=== PATIENT | male | born 2005 | race Asian ===

== ENCOUNTER 2024-04-17 18:12 | Emergency (ER) | payer OTHER, SELFPAY ==
[2024-04-17 18:40] VITALS: BP 150/96; PULSE 96; RESP 18; TEMP 37.6; O2SAT 99; BMI 23.8
--- NOTE | 2024-04-17 21:14 | ED.GENADULT ---
HPI - General Adult General Time Seen by Provider: 21:13 Date Seen: 04/20/24 Chief complaint: Unspecified Complaint, Adult Stated complaint: Med refill Time Seen by Provider: 04/17/24 21:13 Source: patient and RN notes reviewed Mode of arrival: ambulatory Limitations: no limitations History of Present Illness HPI narrative: This very pleasant 18-year-old male is coming in with concern of possible exposure to HIV. He was with a partner last night, was having intercourse and the condom broke. Both he and this partner were both tested in November and tested negative for STIs including HIV. This partner came in to see him this weekend. He is not totally clear on possible exposures for this partner since November. Prior to November both have not tested positive for HIV or had a history of STIs. He is wanting post exposure prophylaxis. He states he has had negative testing in November and is otherwise unconcerned until this episode last night. He is a student at [employer]. He is otherwise healthy, denies any chronic medical issues. Related Data Previous Rx's ?Medication ?Instructions ?Recorded dolutegravir 50 mg tablet (Tivicay) 50 mg PO DAILY #28 tabs 04/17/24 emtricitabine 200 mg-tenofovir 1 tab PO DAILY #28 tabs 04/17/24 disoproxil fumarate 300 mg tablet (Truvada) Allergies Allergy/AdvReac Type Severity Reaction Status Date / Time No Known Drug Allergies Allergy Verified 04/17/24 18:46 Review of Systems Narrative: As per HPI. PFSH PFS Social History Smoking Status: Never smoker How often do you have a drink containing alcohol: never AUDIT-C Alcohol total score: 0 Non-prescribed substance use: denies use Exam Const: Vital Signs, click to edit/add: Vital Signs - 24 hr 04/17/24 18:40 Temperature 99.7 F H Pulse Rate [Right Pulse Oximeter] 96 Respiratory Rate 18 Blood Pressure [Ri ght Upper Arm] 150/96 H Pulse Oximetry 99 Oxygen Delivery Me thod Room Air Patient is alert, interactive, no apparent distress. No examination done, discussion only. Documenting provider has reviewed patient's vital signs: yes Course Course ED Course: Did look at current protocols for recommendations for post exposure prophylaxis. There are no pharmacies open in [facility] [place], did review with him that we will send this to [facility] but I do believe patient's typically have to go to the [facility] to obtain this medicine. [facility] can transfer his prescription to facility that will have this, he can work with the pharmacy in the morning. He understands that he has 72 hours in which to start this medicine. Do think he should talk to his partner about getting subsequent testing. Vital Signs Vital signs: Initial Vital Signs Temperature 99.7 F H 04/17/24 18:40 Temperature Source Temporal Artery Scan 04/17/24 18:40 Pulse Rate 96 04/17/24 18:40 Pulse Rhythm Regular 04/17/24 18:40 Respiratory Rate 18 04/17/24 18:40 Blood Pressure 150/96 H 04/17/24 18:40 Blood Pressure Mean 114 H 04/17/24 18:40 Blood Pressure Position Sitting 04/17/24 18:40 Pulse Oximetry 99 04/17/24 18:40 Oxygen Delivery Method Room Air 04/17/24 18:40 Vital Signs Temperature 99.7 F H 04/17/24 18:40 Pulse Rate 96 04/17/24 18:40 Respiratory Rate 18 04/17/24 18:40 Blood Pressure 150/96 H 04/17/24 18:40 Pulse Oximetry 99 04/17/24 18:40 Oxygen Delivery Method Room Air 04/17/24 18:40 Temperature 99.7 F H 04/17/24 18:40 Pulse Rate 96 04/17/24 18:40 Respiratory Rate 18 04/17/24 18:40 Blood Pressure 150/96 H 04/17/24 18:40 Pulse Oximetry 99 04/17/24 18:40 Oxygen Delivery Method Room Air 04/17/24 18:40 Discharge Plan Discharge Clinical Impression: Potential exposure to STD Patient Disposition: Home, Self-Care Condition: Stable Instructions: Postexposure Prophylaxis (ED), PrEP (Preexposure Prophylaxis for HIV) (ED) Additional Instructions: Need to start these medicines within 72 hours. I do not think that [facility] in [facility] carries these but they may be able to refer them to the [facility] in [place] or refer you to a more local [facility]'s that may carry these. Do recommend ongoing screening for STI infections routinely. If your partner does get tested and has negative status, can consider discontinuing these medicines. Would recommend you contact a medical professional before stopping these. Prescriptions: New Tivicay 50 mg tablet 50 mg PO DAILY Qty: 28 0RF emtricitabine-tenofovir (TDF) [Truvada] 200-300 mg tablet 1 tab PO DAILY Qty: 28 0RF Stand Alone Forms: [employer] Info Instructions
== END 2024-04-17 21:53 | disposition home or self-care (01) ==
PROVIDERS: Emergency Provider Family Medicine
DX: Z20.2 Contact with and (suspected) exposure to infections with a predominantly sexual mode of transmission (principal)
CPT/HCPCS: 99282